=== PATIENT | female | born 1995 | race Caucasian/White ===

== ENCOUNTER → 2017-05-15 | Outpatient (CLI) | payer BC | END | disposition home or self-care (01) | LOC: C.PAPS 09:53 | PROVIDERS: ATTEND Obstetrics & Gynecology | DX: Z01.419 Encounter for gynecological examination (general) (routine) without abnormal findings (principal) ==

== ENCOUNTER 2020-12-15 11:19 | Inpatient (IN) ==
[2020-12-15] MEDS ORDERED: OXYTOCIN 30 UNITS/500 ML BAG IV PRN (20:51)
[2020-12-15 21:20] LABS: Hematocrit (blood only) 38.6 % (37-47); Mean Corpuscular Hemoglobin 28.5 pg (25-34); Mean Corpuscular Hgb Conc 33.7 g/dL (32-36); Mean Corpuscular Volume 84.6 fL (80-100); Mean Platelet Volume 9.4 fL (7.4-10.4); Platelet Count 260 K/uL (130-400); RDW Coefficient of Variation 14.9 % (11.5-14.5); Red Blood Count 4.56 M/uL (4.2-5.4); White Blood Count 12.07 K/uL (4.8-10.8)
[2020-12-15] MEDS ORDERED: GLUCOSE 10 TABS/TUBE PO PRN (21:30)
[2020-12-15] MEDS ORDERED: INSULIN HUMAN NPH SC ONE (21:30)
[2020-12-15] MEDS ORDERED: DEXTROSE 50% 50 ML SYRINGE IV PRN (21:30)
[2020-12-15] MEDS ORDERED: GLUCOSE 40% GEL 15 GM TUBE PO PRN (21:30)
[2020-12-15] MEDS ORDERED: CARBOHYDRATES FOR HYPOGLYCEMIA PO PRN (21:30)
[2020-12-15] MEDS ORDERED: GLUCAGON FOR INJ 1 MG VIAL IM PRN (21:30)
[2020-12-15] MEDS ORDERED: miSOPROStoL 50 MCG TAB PO ONE (21:30)
[2020-12-15] MEDS: LABETALOL HCL 200 MG TAB PO SCH (21:37)
[2020-12-15] MEDS: LACTATED RINGER'S 1,000 ML IV PRN (22:12)
[2020-12-16] MEDS: ceFAZolin 1000MG 1,000 MG/7.5 ML SYR IV PRN ×3 (03:41→22:45)
[2020-12-16] MEDS ORDERED: DINOPROSTONE 10 MG INSERT PV ONE (03:57)
[2020-12-16] MEDS: LABETALOL HCL 200 MG TAB PO SCH ×3 (09:05→20:53)
[2020-12-16] MEDS ORDERED: OXYTOCIN 30 UNITS/500 ML BAG IV PRN ×2 (15:22→16:22)
[2020-12-16] MEDS: LACTATED RINGER'S 1,000 ML IV PRN ×2 (16:02→19:39)
[2020-12-16] MEDS ORDERED: BUTORPHANOL TARTRATE 1 MG/ML VIAL IV PRN (19:51)
[2020-12-16] MEDS ORDERED: BUPIVACAINE 0.25% 30 ML VIAL ONE (20:59)
[2020-12-16] MEDS ORDERED: SODIUM CHLORIDE 0.9% INJ 10 ML VIAL ONE (20:59)
[2020-12-16] MEDS ORDERED: fentaNYL citrate 100 MCG/2 ML VIAL ONE (20:59)
[2020-12-16] MEDS ORDERED: fentaNYL 2MCG/ML ROPIVACAINE 1.25MG/ML 100 ML BAG EPI ONE (20:59)
[2020-12-16] MEDS ORDERED: ePHEDrine sulfate 50 MG/ML AMP ONE (20:59)
--- NOTE | 2020-12-16 21:14 | Anesthesiology Consultation ---
Date of Service December 16, 2020 Assessment & Plan (1) Encounter for pre-operative examination: Chart Review Chart Review: Acceptable Risk for Surgery and Patient NOT seen in Pre Admission Testing Consults Requested none History Height/Weight Height: 5 ft 2 in Weight: 106.141 kg Allergies Allergy/AdvReac Type Severity Reaction Status Date / Time amoxicillin [From Augmentin] Allergy Rash Verified 12/15/20 19:55 clavulanic acid Allergy Rash Verified 12/15/20 19:55 [From Augmentin] Penicillins Allergy Rash Verified 12/15/20 19:55 Medications Home Medications Medication Instructions Recorded Confirmed Last Taken acetone (urine) test #50 08/07/20 08/07/20 Unknown blood sugar diagnostic #150 08/07/20 08/07/20 Unknown blood-glucose meter #1 08/07/20 08/07/20 Unknown lancets 33 gauge #150 08/07/20 08/07/20 Unknown insulin syringe-needle U-100 0.5 #40 08/18/20 08/18/20 Unknown mL 31 gauge x 5/16" insulin NPH isoph U-100 human 50 unit SUBCUT QPM 12/15/20 12/15/20 12/14/20 [Novolin N NPH U-100 Insulin] labetalol 200 mg PO TID 12/15/20 12/15/20 12/15/20 vit-ferrous sulfat-FA 1 tab PO DAILY 12/15/20 12/15/20 Unknown [] Active Medications Generic Name Dose Route Start Last Admin Trade Name Freq PRN Reason Stop Dose Admin Butorphanol Tartrate 1 mg 12/16/20 19:51 12/16/20 20:05 Butorphanol Tartrate 1 Mg/Ml Vial IV 01/15/21 19:50 1 mg PRN PRN Administration Pain Cefazolin Sodium 1,000 mg in 7.5 mls @ 2.5 mls/min 12/15/20 20:51 12/16/20 13:51 Ancef 1000mg IV 12/25/20 20:50 2.5 mls/min Q8H PRN Administration Until Delivery Lactated Ringer's 1,000 mls @ 125 mls/hr 12/15/20 20:51 12/16/20 19:39 Lr IV 12/17/20 20:50 125 mls/hr .Q8H PRN Administration L&D Protocol Protocol Oxytocin 30 units in 500 mls @ 12 mls/hr 12/16/20 15:22 12/16/20 20:15 Pitocin IV 12/18/20 15:21 0.72 units/hr .Q24H PRN 12 mls/hr Labor Induction/Augmentation Titration Protocol 0.72 UNITS/HR Labetalol HCl 200 mg 12/15/20 21:00 12/16/20 20:53 Labetalol Hcl 200 Mg Tab PO 01/14/21 20:59 200 mg TID TAVARES Administration Past Medical History Medical History (Updated 12/16/20 @ 21:12 by Kerry Mesa MD) History of cervicitis History of palpitations Seborrheic dermatitis Past Family History Family History Family/Other Diabetes Depression Hypertension Grandfather (Maternal) Heart disease Grandmother (Maternal) Heart disease Stroke x2 strokes Father Mitral valve anterior leaflet prolapse Uncle Thrombocytopenia, heparin-induced (HIT) Denies family history of Ovarian cancer Breast cancer Colorectal cancer Past Surgical History Surgical History S/P appendectomy S/P wisdom tooth extraction Social History Smoking Status: Never smoker Hx Alcohol Use: No Hx Substance Use: No Physical Exam Vital Signs Last Vital Signs Temp 36.6 C 12/16/20 13:01 Pulse 81 12/16/20 21:06 Resp 20 12/16/20 17:37 BP 133/75 12/16/20 21:06 Testing Laboratory Results 12/15/20 21:09 12/16/20 12/16/20 12/16/20 20:02 15:58 10:51 POC Glucose 88 78 103 H
[2020-12-16] MEDS ORDERED: ePHEDrine sulfate 50 MG/ML AMP IV PRN (22:02)
[2020-12-16] MEDS ORDERED: fentaNYL 2MCG/ML ROPIVACAINE 1.25MG/ML 100 ML BAG EPI PRN (22:02)
[2020-12-16] MEDS ORDERED: NALOXONE HCL 1 MG in SODIUM CHLORIDE 0.9% 1000ML 1,000 ML IV PRN (22:02)
[2020-12-16] MEDS ORDERED: NALOXONE HCL 0.4 MG/1 ML VIAL/CARP IV PRN (22:02)
[2020-12-16] MEDS ORDERED: ONDANSETRON INJ 2 MG/ML 2 ML VIAL IV PRN (22:02)
[2020-12-16] MEDS ORDERED: diphenhydrAMINE 50 MG/ML VIAL IV PRN (22:02)
[2020-12-17] MEDS: LACTATED RINGER'S 1,000 ML IV PRN (01:05)
[2020-12-17] MEDS ORDERED: ACETAMINOPHEN 325 MG TAB PO PRN (03:20)
[2020-12-17] MEDS ORDERED: bisacodyL 10 MG SUPP PR PRN (03:20)
[2020-12-17] MEDS ORDERED: HYDROCORTISONE ACETATE 25 MG SUPP PR PRN (03:20)
[2020-12-17] MEDS ORDERED: oxyCODONE/ACETAMINOPHEN 5mg/325mg TAB PO PRN (03:20)
[2020-12-17] MEDS ORDERED: SUPERCREAM 0.870% 15 GM JAR EXT PRN (03:20)
[2020-12-17] MEDS ORDERED: ACETAMINOPHEN W/CODEINE #3 1 TAB PO PRN (03:20)
[2020-12-17] MEDS ORDERED: OXYTOCIN 30 UNITS/500 ML BAG IV PRN (03:20)
[2020-12-17] MEDS ORDERED: BENZOCAINE 20% AER SPR 82.5 GM CAN EXT PRN (03:20)
[2020-12-17] MEDS ORDERED: DIPHTHERIA/TETANUS/PERTUSSIS 0.5 ML SYR/VIAL IM ONE (03:20)
[2020-12-17] MEDS: IBUPROFEN 600 MG TAB PO PRN ×4 (05:29→20:15)
--- NOTE | 2020-12-17 08:21 | Delivery Summary ---
DATE OF OPERATION: 12/17/2020 She is a 1, para 1. Blood type is O positive, group B strep positive, induction at 38 weeks 5 days. complicated by hypertension for which she has been taking labetalol 200 mg 3 times a day and gestational diabetes for which she was on insulin brought in for induction at 35 weeks and 3 days, was given p.o. Cytotec and a Cervidil tape. After the tape was removed, she was started on IV Pitocin and the membranes were then ruptured. After rupture of membranes, contractions became a lot harder, she was given a dose of Stadol. Then she received epidural. When she received epidural, her labor progressed steadily, went to full dilatation, and pushed out a live female infant via direct occiput anterior position over an intact perineum. There was some bradycardia prior to delivery. This was managed by first cutting back on the Pitocin and shutting it off and starting mask oxygen. At the time of delivery, there was a tight nuchal cord x1, which had to be clamped and cut. Infant was then delivered without difficulty, was attended to by the nurses. Cord blood was taken. With IV Pitocin running, the placenta was removed intact. Inspection of the perineum revealed a superficial laceration of the perineum and the vagina on the right side. There was actually a small arterial pumper. The vaginal defect was approximated with a running 2-0 Vicryl out and to beyond the hymenal ring and this basically repaired the laceration. Following this, hemostasis was good. Vaginal exam including rectovaginal examination revealed no hematoma formation or sponges in the vagina. The patient tolerated the procedure well. ESTIMATED BLOOD LOSS: 300 mL I attest to the content of the Intraoperative Record and any orders documented therein. Any exception s are noted below.
[2020-12-17] MEDS ORDERED: LABETALOL HCL 200 MG TAB PO SCH (09:00)
--- NOTE | 2020-12-17 09:13 | Anesthesia Procedure Note ---
Date of Service December 17, 2020 Anesthesia Post Epidural Note Vital Signs Vital Signs: Temp Pulse Resp BP Pulse Ox 36.6 C 103 H 18 119/72 96 12/17/20 06:10 12/17/20 06:10 12/17/20 06:10 12/17/20 06:10 12/17/20 06:10 Pain Intensity Bilateral Lower Abdomen: Pain Intensity: 7 Notes Mental Status: alert / awake / arousable Nausea / Vomiting: adequately controlled Pain: adequately controlled Airway Patency, RR, SpO2: stable & adequate BP & HR: stable & adequate Hydration State: stable & adequate Neuraxial Anesthesia: was administered and sensory block is resolving Anesthetic Complications: no major complications apparent and Pt Satisfied with anesthetic care Epidural: Removed without complications and With tip intact
[2020-12-17] MEDS: LABETALOL HCL 200 MG TAB PO SCH ×3 (09:30→21:12)
[2020-12-17] MEDS: DOCUSATE SODIUM 100 MG CAP PO SCH ×2 (09:30→20:15)
[2020-12-17] MEDS: PRENATAL VITAMIN 1 TAB PO SCH (09:30)
[2020-12-18 06:12] LABS: Hematocrit (blood only) 35.5 % (37-47); Hemoglobin 11.8 g/dL (12.0-16.0); Mean Corpuscular Hemoglobin 28.4 pg (25-34); Mean Corpuscular Hgb Conc 33.2 g/dL (32-36); Mean Corpuscular Volume 85.5 fL (80-100); Mean Platelet Volume 9.3 fL (7.4-10.4); Platelet Count 187 K/uL (130-400); RDW Coefficient of Variation 14.9 % (11.5-14.5); RDW Standard Deviation 46.5 fL (36.4-46.3); Red Blood Count 4.15 M/uL (4.2-5.4); White Blood Count 12.75 K/uL (4.8-10.8)
[2020-12-18] MEDS: IBUPROFEN 600 MG TAB PO PRN ×2 (09:04→21:54)
--- NOTE | 2020-12-18 09:19 | Obstetrical Progress Note ---
Date of Service December 18, 2020 Assessment & Plan Admission and Anticipated Discharge Date Admission Date: December 15, 2020 Physical Exam Physical Exam: abdomen soft and non tender no calf tenderness ambulating well vaginal bleeding scant hgb 11.8 Results & Data ([facility]) Vital Signs (Past 12 Hours) Vital Signs Temp Pulse Resp BP 12/18/20 04:30 36.4 C L 78 18 120/81 12/17/20 23:40 36.4 C L 87 18 111/70
[2020-12-18] MEDS: DOCUSATE SODIUM 100 MG CAP PO SCH ×2 (09:36→20:05)
[2020-12-18] MEDS: PRENATAL VITAMIN 1 TAB PO SCH (09:36)
[2020-12-18] MEDS: LABETALOL HCL 200 MG TAB PO SCH ×3 (09:38→20:06)
[2020-12-18] MEDS ORDERED: bisacodyL 5 MG TABEC PO SCH (20:00)
[2020-12-19] MEDS: IBUPROFEN 600 MG TAB PO PRN ×3 (02:21→16:05)
[2020-12-19 06:52] LABS: Hematocrit (blood only) 35.3 % (37-47); Hemoglobin 11.8 g/dL (12.0-16.0)
--- NOTE | 2020-12-19 07:29 | Obstetrical Progress Note ---
Date of Service December 19, 2020 Assessment & Plan Admission and Anticipated Discharge Date Admission Date: December 15, 2020 Physical Exam Physical Exam: abdomen soft and non tender ambulating well no calf tenderness vaginal bleeding scant hgb 11.8 Results & Data ([facility]) Vital Signs (Past 12 Hours) Vital Signs Temp Pulse Resp BP 12/18/20 23:51 36.7 C 74 18 137/74
[2020-12-19] MEDS: DOCUSATE SODIUM 100 MG CAP PO SCH (09:00)
[2020-12-19] MEDS: PRENATAL VITAMIN 1 TAB PO SCH (09:00)
[2020-12-19] MEDS: LABETALOL HCL 200 MG TAB PO SCH ×2 (09:01→15:06)
[2020-12-19 09:50] VITALS: O2SAT 97
[2020-12-19 16:12] VITALS: BP 120/80; PULSE 80; TEMP 98.1
== END 2020-12-19 18:29 | disposition home or self-care (01) | DRG 807 ==
LOC: 4S1 19:35 → 4S2 12-17 06:13

== ENCOUNTER 2025-09-08 07:37 | Inpatient (IN) ==
[2025-09-08] MEDS ORDERED: OXYTOCIN 30 UNITS/NSS 30 UNITS/500 ML BAG IV PRN (08:55)
[2025-09-08] MEDS ORDERED: CALCIUM CARBONATE 500 MG CHEWABLE TAB PO PRN (08:55)
[2025-09-08 09:34] LABS: Hematocrit (blood only) 36.8 % (37.0-47.0); Hemoglobin 12.6 g/dl (12.0-16.0); Mean Corpuscular Hemoglobin 28.8 pg (25.0-34.0); Mean Corpuscular Volume 84.0 fL (80.0-100.0); Platelet Count 164 K/uL (130-400); RDW Standard Deviation 43.5 fL (36.4-46.3); Red Blood Count 4.38 M/uL (4.20-5.40); White Blood Count 9.18 K/ul (4.8-10.8)
[2025-09-08] MEDS: LACTATED RINGER'S 1,000 ML IV PRN (09:44)
--- NOTE | 2025-09-08 10:04 | History & Physical Report ---
Date of Service September 08, 2025 Assessment & Plan (1) IUGR (intrauterine growth restriction) affecting care of mother: (2) Chronic hypertension affecting : (3) Insulin controlled gestational diabetes mellitus (GDM) during : (4) Obesity affecting , antepartum: Plan Admit to L&D. EFM/toco. Labs. Ancef for GBS+ (has PCN allergy - rash, no h/o anaphylaxis). Pitocin, ok for epidural when she desires. Will check initial glucose and hourly in labor. Admission and Anticipated Discharge Date Admission Date: September 08, 2025 History of Present Illness Chief Complaint: IOL Primary Care Provider: Cecilio Dill MD 30yo @ 38 01/24, here for IOL for cHTN. and Delivery Plans IUGR - EFW 9% at 24wks w/ MFM and again EFW 9% at 36wks montly growth us *Twice weekly NST/DVP@Dx *Weekly doppler@Dx *Growth US Q4wk @Dx *Deliver [id number] (unless abnml flow) *Deliver 37wks (less than 3rd%) GDM on insulin *Wkly NSTs @32wks and Twice wkly @36wks *Growth US Q 4wks @ 24wks (24 wk growth at [facility] to complete anatomy also) *Deliver by [facility] Hx PIH with prior - ?chtn vs ghtn -baseline labs, baby asa -baseline 24hr urine wnl - sln initial protein 128 Obesity (BMI 40 and higher @ beginning of ) BMI 47 at start *Growth US @ 32wks *Weekly NSTs @ 34wks *BMI 40 or greater offer detailed/level II anatomy at [facility] - desires [facility] 05/06/25 *BMI 40 or above offer delivery by EDC. Hepatitis B Non Immune *Recommend Hepatitis B Vaccine CHTN----No Meds *Baby ASA daily start 12-28 wks, continue until delivery - started *wkly NST's @32wks and twice wkly @36 wks *Serial Growth US @ 24 (doppler only if abnml) *Baseline 24hr urine (additioinal PRN) *weekly SUMMER's @ 32wk(If on Meds) *Deliver [id number] (If on Meds) *Deliver [id number] (Not on Meds)------IOL 09/08 GBS + -Treat in labor Allergies Allergy/AdvReac Type Severity Reaction Status Date / Time amoxicillin [From Augmentin] Allergy Rash Verified 08/26/25 14:44 clavulanic acid Allergy Rash Verified 08/26/25 14:44 [From Augmentin] Penicillins Allergy Rash Verified 08/26/25 14:44 Home Medications Medication Instructions Recorded Confirmed Type 21-iron fu-folic acid 1 tab PO DAILY 02/21/25 09/08/25 History [ Complete] acetone (urine) test (Ketone Urine #50 ea 03/06/25 08/26/25 Rx Test strips) blood sugar diagnostic (OneTouch #150 ea 03/06/25 08/26/25 Rx Verio test strips) blood-glucose meter (OneTouch #1 ea 03/06/25 08/26/25 Rx Verio Reflect Meter) lancets 33 gauge (OneTouch Delica #150 ea 03/06/25 08/26/25 Rx Plus Lancet) pen needle, diabetic 32 gauge x #100 ea 03/21/25 08/26/25 Rx 5/32" aspirin 81 mg chewable tablet 81 mg PO DAILY 09/08/25 09/08/25 History insulin NPH isoph U-100 human 100 50 unit subcut .at bed time 09/08/25 09/08/25 History unit/mL (3 mL) subcutaneous pen (Novolin N FlexPen) Patient History Medical History Varicella Human papillomavirus Obesity Acute vulvitis Anxiety Low grade squamous intraepithelial lesion (LGSIL) on cervical Pap smear Nephrolithiasis Pigmented nevus Polycystic ovarian syndrome Seborrheic dermatitis History of palpitations History of cervicitis Surgical History S/P wisdom tooth extraction S/P appendectomy Family History Family/Other Diabetes Depression Hypertension Grandfather (Maternal) Heart disease Grandmother (Maternal) Heart disease Stroke Father Mitral valve anterior leaflet prolapse Uncle Thrombocytopenia, heparin-induced (HIT) Denies family history of Ovarian cancer Breast cancer Colorectal cancer Social History (Updated 02/21/25 @ 13:12 by Vielka Mccall) Smoking Status: Never smoker Do You Dip or Chew Tobacco: No; Hx Alcohol Use: No Hx Substance Use: No Preferred Language: Arabic Communication Ability: Effective [employer] And Wellness Instructor Required: No Beliefs That Will Affect Care: None marital status: marital status details: Jaime Lowery (36) [phone] Current Living Situation: Spouse and Family Current Living Situation Comment: lives with spouse, child, 2 step children, dogs, cat-spouse changing litter current occupational status: employed current occupation: [employer] Other Information That Helps Us Care for You: No Feels Safe at Home: Yes Safety Concerns: Feels Safe At This Time Physical Activity Frequency: Other Physical Activity Frequency Comment: regularly Assistive Devices: None Review of Systems All systems reviewed & are unremarkable except as noted in HPI & below Physical Exam Physical Exam: /-3 T Cat 1 [place] rare Constitutional: WD/WN, vitals as above Respiratory: normal respiratory effort, lungs clear to auscultation no respiratory distress Cardiovascular: Rate/Rhythm: regular rate and regular rhythm Gastrointestinal (Abdomen): Inspection/Auscultation: abdomen normal to inspection Percussion/Palpation: abdomen soft; abdomen nontender Gravid. No s/s chorio or abruption. Skin: no rashes, warm and dry Psychiatric: A+Ox3, euthymic affect Results & Data Vital Signs (Past 12 Hours) Vital Signs Temp Pulse Resp BP 09/08/25 09:48 100 H 09/08/25 09:48 117/70 09/08/25 08:16 36.7 C 20 09/08/25 07:55 122 H 115/65 Coding Level of Care Code None Diagnoses IUGR (intrauterine growth restriction) affecting care of mother O36.5990 Chronic hypertension affecting O10.919 Insulin controlled gestational diabetes mellitus (GDM) during O24.414 Obesity affecting , antepartum O99.210
[2025-09-08] MEDS: OXYTOCIN 30 UNITS/NSS 30 UNITS/500 ML BAG IV PRN (10:16)
--- NOTE | 2025-09-08 19:59 | Labor Progress Brief Note ---
Date of Service September 08, 2025 Subjective Starting to feel ctx. Not uncomfortable yet. FHT Cat 1 [place] Q 2 SVE /-2 Discussed plan- will get epidural, then AROM to continue IOL. She is agreeable. Assessment & Plan Admission and Anticipated Discharge Date Admission Date: September 08, 2025 Results & Data Vital Signs (Past 12 Hours) Vital Signs Temp Pulse Resp BP 09/08/25 19:17 36.7 C 09/08/25 19:17 85 09/08/25 19:17 119/64 09/08/25 18:23 18 09/08/25 18:23 18 09/08/25 18:23 98 H 09/08/25 18:23 126/69 09/08/25 17:21 90 09/08/25 17:21 115/60 09/08/25 16:38 18 09/08/25 16:38 18 09/08/25 16:38 81 09/08/25 16:38 119/69 09/08/25 14:47 16 09/08/25 14:47 36.7 C 16 09/08/25 14:47 88 09/08/25 14:47 103/58 L 09/08/25 14:30 18 09/08/25 14:30 18 09/08/25 13:30 83 09/08/25 13:30 119/68 09/08/25 12:35 93 H 09/08/25 12:35 104/56 L 09/08/25 12:00 20 09/08/25 12:00 20 09/08/25 11:00 18 09/08/25 11:00 36.6 C 18 09/08/25 10:59 96 H 09/08/25 10:59 118/67 09/08/25 10:30 20 09/08/25 10:30 20 09/08/25 10:00 20 09/08/25 10:00 20 09/08/25 09:48 100 H 09/08/25 09:48 117/70 09/08/25 09:30 18 09/08/25 09:30 18 09/08/25 09:00 18 09/08/25 09:00 18 09/08/25 08:16 36.7 C 20 09/08/25 07:55 122 H 115/65 Coding Level of Care Code None
[2025-09-08] MEDS ORDERED: NALBUPHINE HCL INJ 10 MG/ML AMP IV PRN (20:08)
[2025-09-08] MEDS ORDERED: SODIUM CHLORIDE 0.9% PF INJ 10 ML VIAL EPI PRN (20:08)
[2025-09-08] MEDS ORDERED: ROPIVACAINE 0.5% PF 5 MG/ML 20 ML VIAL EPI PRN (20:08)
[2025-09-08] MEDS ORDERED: LIDOCAINE 2% MPF LOCAL 5 ML VIAL EPI PRN (20:08)
[2025-09-08] MEDS ORDERED: NALOXONE HCL 0.4 MG/1 ML VIAL/CARP IV PRN (20:08)
[2025-09-08] MEDS ORDERED: diphenhydrAMINE 50 MG/ML VIAL IV PRN (20:08)
[2025-09-08] MEDS ORDERED: fentANYL 2 MCG/ML BUPIVacaine 0.125%-NSS 100ML BAG EPI PRN (20:08)
[2025-09-08] MEDS ORDERED: BUPIVACAINE 0.25% PF 30 ML VIAL EPI PRN (20:08)
[2025-09-08] MEDS ORDERED: NALOXONE HCL 1 MG in SODIUM CHLORIDE 0.9% 1,000 ML IV PRN (20:08)
--- NOTE | 2025-09-08 20:10 | Anesthesiology Consultation ---
Date of Service September 08, 2025 Assessment & Plan (1) Encounter for pre-operative examination: Chart Review Chart Review: Patient NOT seen in Pre Admission Testing and Acceptable Risk for Labor Epidural Consults Requested none History Height/Weight Height: 5 ft 2 in Weight: 107 kg Allergies Allergy/AdvReac Type Severity Reaction Status Date / Time amoxicillin [From Augmentin] Allergy Rash Verified 08/26/25 14:44 clavulanic acid Allergy Rash Verified 08/26/25 14:44 [From Augmentin] Penicillins Allergy Rash Verified 08/26/25 14:44 Medications Home Medications Medication Instructions Recorded Confirmed Last Taken 21-iron fu-folic acid 1 tab PO DAILY 02/21/25 09/08/25 09/07/25 [ Complete] acetone (urine) test (Ketone Urine #50 ea 03/06/25 08/26/25 Unknown Test strips) blood sugar diagnostic (OneTouch #150 ea 03/06/25 08/26/25 Unknown Verio test strips) blood-glucose meter (OneTouch #1 ea 03/06/25 08/26/25 Unknown Verio Reflect Meter) lancets 33 gauge (OneTouch Delica #150 ea 03/06/25 08/26/25 Unknown Plus Lancet) pen needle, diabetic 32 gauge x #100 ea 03/21/25 08/26/25 Unknown 32" aspirin 81 mg chewable tablet 81 mg PO DAILY 09/08/25 09/08/25 09/07/25 insulin NPH isoph U-100 human 100 50 unit subcut .at bed time 09/08/25 09/08/25 09/07/25 unit/mL (3 mL) subcutaneous pen (Novolin N FlexPen) Active Medications Generic Name Dose Route Start Last Admin Trade Name Freq PRN Reason Stop Dose Admin Lactated Ringer's 1,000 mls @ 125 mls/hr 09/08/25 08:55 09/08/25 17:42 Lr IV 09/10/25 08:54 125 mls/hr .Q8H PRN Administration L&D Protocol Protocol Oxytocin 30 units in 500 mls @ 17 mls/hr 09/08/25 09:59 09/08/25 19:15 Pitocin 30 Units/Nss IV 09/10/25 09:58 1.02 units/hr .Q24H PRN 17 mls/hr Labor Induction/Augmentation Titration Protocol 1.02 UNITS/HR Cefazolin Sodium 1,000 mg in 7.5 mls @ 2.5 mls/min 09/08/25 16:59 09/08/25 19:18 Ancef 1000mg IV 09/18/25 16:58 2.5 mls/min Q8H PRN Administration GBS(+) Until Delivery Past Medical History Medical History Varicella Human papillomavirus Obesity Acute vulvitis Anxiety Low grade squamous intraepithelial lesion (LGSIL) on cervical Pap smear Nephrolithiasis Pigmented nevus Polycystic ovarian syndrome Seborrheic dermatitis History of palpitations History of cervicitis Past Family History Family History Family/Other Diabetes Depression Hypertension Grandfather (Maternal) Heart disease Grandmother (Maternal) Heart disease Stroke x2 strokes Father Mitral valve anterior leaflet prolapse Uncle Thrombocytopenia, heparin-induced (HIT) Denies family history of Ovarian cancer Breast cancer Colorectal cancer Past Surgical History Surgical History S/P wisdom tooth extraction S/P appendectomy Social History Smoking Status: Never smoker Do You Dip or Chew Tobacco: No Hx Alcohol Use: No Hx Substance Use: No substance use type: does not use Physical Exam Vital Signs Last Vital Signs Temp 98.1 F 09/08/25 19:17 Pulse 85 09/08/25 19:17 Resp 18 09/08/25 18:23 BP 119/64 09/08/25 19:17 Testing Laboratory Results 09/08/25 09:15 Blood Type O Positive 09/08/25 09:15 Antibody Screen NEGATIVE 09/08/25 09:15 09/08/25 09:53 POC Glucose 92
[2025-09-08] MEDS: fentANYL 2 MCG/ML BUPIVacaine 0.125%-NSS 100ML BAG ONE (20:34)
[2025-09-08] MEDS: SODIUM CHLORIDE 0.9% PF INJ 10 ML VIAL ONE (20:35)
[2025-09-08] MEDS: LIDOCAINE 2%/EPINEPHRINE 1:200,000 20 ML PF ONE (20:36)
[2025-09-08] MEDS: BUPIVACAINE 0.25% PF 30 ML VIAL ONE (20:36)
[2025-09-08] MEDS: BUPIVACAINE 0.25% PF 30 ML VIAL EPI STA (20:40)
[2025-09-08] MEDS: LIDOCAINE 2%/EPINEPHRINE 1:200,000 20 ML PF EPI STA (20:40)
[2025-09-08] MEDS: SODIUM CHLORIDE 0.9% PF INJ 10 ML VIAL EPI STA (20:41)
--- NOTE | 2025-09-09 00:52 | Labor Progress Brief Note ---
Date of Service September 09, 2025 Subjective Reexam shows cervix is unchanged over the past 3 hours. Patient felt some increased pain with contractions, but this has eased with epidural. FHT Cat 2 - some early decelerations, occasional variable decelerations. +accels. [place] Q 2 IUPC and FSE placed. Assessment & Plan Admission and Anticipated Discharge Date Admission Date: September 08, 2025 Results & Data Vital Signs (Past 12 Hours) Vital Signs Temp Pulse Resp BP Pulse Ox 09/09/25 00:45 107 H 99 09/09/25 00:40 112 H 100 09/09/25 00:36 106 H 122/58 L 09/09/25 00:35 104 H 98 09/09/25 00:30 127 H 99 09/09/25 00:25 116 H 98 09/09/25 00:21 115 H 130/71 09/09/25 00:20 113 H 98 09/09/25 00:15 110 H 99 09/09/25 00:10 99 H 97 09/09/25 00:05 98 09/09/25 00:05 102 H 09/09/25 00:05 102 H 95/54 L 09/09/25 00:00 99 H 98 09/08/25 23:55 98 09/08/25 23:55 103 H 09/08/25 23:50 100 09/08/25 23:50 101 H 09/08/25 23:50 99/58 L 09/08/25 23:45 98 09/08/25 23:45 109 H 09/08/25 23:40 98 09/08/25 23:40 94 H 09/08/25 23:35 98 09/08/25 23:35 95 H 09/08/25 23:35 93/54 L 09/08/25 23:30 98 09/08/25 23:30 105 H 09/08/25 23:25 36.8 C 09/08/25 23:25 98 09/08/25 23:25 115 H 09/08/25 23:21 100 H 09/08/25 23:21 102/53 L 09/08/25 23:20 99 09/08/25 23:20 100 H 09/08/25 23:15 98 09/08/25 23:15 94 H 09/08/25 23:10 98 09/08/25 23:10 97 H 09/08/25 23:05 98 09/08/25 23:05 99 H 09/08/25 23:05 99/57 L 09/08/25 23:00 98 09/08/25 23:00 96 H 09/08/25 22:55 97 09/08/25 22:55 99 H 09/08/25 22:50 99 09/08/25 22:50 105 H 09/08/25 22:50 106/58 L 09/08/25 22:45 97 09/08/25 22:45 96 H 09/08/25 22:40 98 09/08/25 22:40 98 H 09/08/25 22:36 94 H 09/08/25 22:36 104/55 L 09/08/25 22:35 98 09/08/25 22:35 94 H 09/08/25 22:30 98 09/08/25 22:30 93 H 09/08/25 22:25 99 09/08/25 22:25 98 H 09/08/25 22:20 99 09/08/25 22:20 98 H 09/08/25 22:20 101 H 09/08/25 22:20 99/54 L 09/08/25 22:15 99 09/08/25 22:15 100 H 09/08/25 22:10 99 09/08/25 22:10 99 H 09/08/25 22:05 100 09/08/25 22:05 96 H 09/08/25 22:05 99/52 L 09/08/25 22:00 100 09/08/25 22:00 102 H 09/08/25 21:55 100 09/08/25 21:55 92 H 09/08/25 21:50 100 09/08/25 21:50 101 H 09/08/25 21:50 110 H 09/08/25 21:50 104/56 L 09/08/25 21:48 98 H 09/08/25 21:48 95/58 L 09/08/25 21:46 103 H 09/08/25 21:46 94/53 L 09/08/25 21:45 100 09/08/25 21:45 103 H 09/08/25 21:44 102 H 09/08/25 21:44 92/55 L 09/08/25 21:42 109 H 09/08/25 21:42 98/58 L 09/08/25 21:40 100 09/08/25 21:40 103 H 09/08/25 21:40 106 H 09/08/25 21:40 99/53 L 09/08/25 21:38 97 H 09/08/25 21:38 96/50 L 09/08/25 21:37 36.7 C 09/08/25 21:36 103 H 09/08/25 21:36 100/56 L 09/08/25 21:35 99 09/08/25 21:35 109 H 09/08/25 21:34 96 H 09/08/25 21:34 113/57 L 09/08/25 21:32 97 H 09/08/25 21:32 106/56 L 09/08/25 21:30 99 09/08/25 21:30 99 H 09/08/25 21:30 91 H 09/08/25 21:30 109/59 L 09/08/25 21:28 96 H 09/08/25 21:28 107/61 09/08/25 21:26 88 09/08/25 21:26 115/58 L 09/08/25 21:25 99 09/08/25 21:25 93 H 09/08/25 21:24 101 H 09/08/25 21:24 117/55 L 09/08/25 21:22 100 H 09/08/25 21:22 114/59 L 09/08/25 21:20 99 09/08/25 21:20 100 H 09/08/25 21:20 115/58 L 09/08/25 21:18 93 H 09/08/25 21:18 116/59 L 09/08/25 21:16 92 H 09/08/25 21:16 113/60 09/08/25 21:15 99 09/08/25 21:15 92 H 09/08/25 21:14 104 H 09/08/25 21:14 102/59 L 09/08/25 21:12 93 H 09/08/25 21:12 114/60 09/08/25 21:10 99 09/08/25 21:10 99 H 09/08/25 21:10 92 H 09/08/25 21:10 115/59 L 09/08/25 21:08 91 H 09/08/25 21:08 113/60 09/08/25 21:06 96 H 09/08/25 21:06 120/58 L 09/08/25 21:05 100 09/08/25 21:05 94 H 09/08/25 21:04 96 H 09/08/25 21:04 119/59 L 09/08/25 21:02 90 09/08/25 21:02 113/55 L 09/08/25 21:00 100 09/08/25 21:00 107 H 09/08/25 21:00 100 H 09/08/25 21:00 113/61 09/08/25 20:58 127 H 09/08/25 20:58 111/57 L 09/08/25 20:56 109 H 09/08/25 20:56 106/55 L 09/08/25 20:55 99 09/08/25 20:55 111 H 09/08/25 20:54 107 H 09/08/25 20:54 104/55 L 09/08/25 20:52 102 H 09/08/25 20:52 110/57 L 09/08/25 20:50 99 09/08/25 20:50 114 H 09/08/25 20:50 97 H 09/08/25 20:50 108/54 L 09/08/25 20:48 102 H 09/08/25 20:48 108/56 L 09/08/25 20:46 105 H 09/08/25 20:46 105/54 L 09/08/25 20:45 99 09/08/25 20:45 105 H 09/08/25 20:44 103 H 09/08/25 20:44 101/54 L 09/08/25 20:42 101 H 09/08/25 20:42 106/56 L 09/08/25 20:40 97 09/08/25 20:40 106 H 09/08/25 20:40 96 H 09/08/25 20:40 105/55 L 09/08/25 20:38 97 H 09/08/25 20:38 103/57 L 09/08/25 20:37 87 20 20:37 97/55 L 09/08/25 20:35 100 09/08/25 20:35 88 10/20/25 20:35 92/52 L 09/08/25 20:34 106 H 09/08/25 20:34 109/55 L 09/08/25 20:31 122 H 09/08/25 20:31 127/65 09/08/25 20:30 100 09/08/25 20:30 114 H 09/08/25 20:28 133 H 09/08/25 20:28 138/79 09/08/25 20:25 100 09/08/25 20:25 111 H 09/08/25 20:20 100 09/08/25 20:20 127 H 09/08/25 20:15 100 09/08/25 20:15 115 H 09/08/25 19:17 36.7 C 09/08/25 19:17 85 09/08/25 19:17 119/64 09/08/25 18:23 18 09/08/25 18:23 18 09/08/25 18:23 98 H 09/08/25 18:23 126/69 09/08/25 17:21 90 09/08/25 17:21 115/60 09/08/25 16:38 18 09/08/25 16:38 18 09/08/25 16:38 81 09/08/25 16:38 119/69 09/08/25 14:47 16 09/08/25 14:47 36.7 C 16 09/08/25 14:47 88 09/08/25 14:47 103/58 L 09/08/25 14:30 18 09/08/25 14:30 18 09/08/25 13:30 83 09/08/25 13:30 119/68 Coding Level of Care Code None
--- NOTE | 2025-09-09 01:51 | Labor Progress Brief Note ---
Date of Service September 09, 2025 Subjective Feeling some pressure occasionally. FHT Cat 1 [place] Q 2, adequate MVUs US cephalic. (limited bedside) SVE 80/-1 Continue pitocin, continue labor, continue repositioning. Suspect OP presentation. Assessment & Plan Admission and Anticipated Discharge Date Admission Date: September 08, 2025 Results & Data Vital Signs (Past 12 Hours) Vital Signs Temp Pulse Resp BP Pulse Ox 09/09/25 01:45 117 H 98 09/09/25 01:40 118 H 99 09/09/25 01:37 36.9 C 09/09/25 01:35 121 H 148/77 H 100 09/09/25 01:30 118 H 99 09/09/25 01:25 112 H 99 09/09/25 01:22 110 H 135/73 09/09/25 01:20 113 H 100 09/09/25 01:15 111 H 99 09/09/25 01:10 108 H 99 09/09/25 01:06 103 H 133/77 09/09/25 01:05 102 H 97 09/09/25 01:00 108 H 98 09/09/25 00:55 102 H 98 09/09/25 00:51 104 H 130/73 09/09/25 00:50 102 H 97 09/09/25 00:45 107 H 99 09/09/25 00:40 112 H 100 09/09/25 00:36 106 H 122/58 L 09/09/25 00:35 104 H 98 09/09/25 00:30 127 H 99 09/09/25 00:25 116 H 98 09/09/25 00:21 115 H 130/71 09/09/25 00:20 113 H 98 09/09/25 00:15 110 H 99 09/09/25 00:10 99 H 97 09/09/25 00:05 98 09/09/25 00:05 102 H 09/09/25 00:05 102 H 95/54 L 09/09/25 00:00 99 H 98 09/08/25 23:55 98 09/08/25 23:55 103 H 09/08/25 23:50 100 09/08/25 23:50 101 H 09/08/25 23:50 99/58 L 09/08/25 23:45 98 09/08/25 23:45 109 H 09/08/25 23:40 98 09/08/25 23:40 94 H 09/08/25 23:35 98 09/08/25 23:35 95 H 09/08/25 23:35 93/54 L 09/08/25 23:30 98 09/08/25 23:30 105 H 09/08/25 23:25 36.8 C 09/08/25 23:25 98 09/08/25 23:25 115 H 09/08/25 23:21 100 H 09/08/25 23:21 102/53 L 09/08/25 23:20 99 09/08/25 23:20 100 H 09/08/25 23:15 98 09/08/25 23:15 94 H 09/08/25 23:10 98 09/08/25 23:10 97 H 09/08/25 23:05 98 09/08/25 23:05 99 H 09/08/25 23:05 99/57 L 09/08/25 23:00 98 09/08/25 23:00 96 H 09/08/25 22:55 97 09/08/25 22:55 99 H 09/08/25 22:50 99 09/08/25 22:50 105 H 09/08/25 22:50 106/58 L 09/08/25 22:45 97 09/08/25 22:45 96 H 09/08/25 22:40 98 09/08/25 22:40 98 H 09/08/25 22:36 94 H 09/08/25 22:36 104/55 L 09/08/25 22:35 98 09/08/25 22:35 94 H 09/08/25 22:30 98 09/08/25 22:30 93 H 09/08/25 22:25 99 09/08/25 22:25 98 H 09/08/25 22:20 99 09/08/25 22:20 98 H 09/08/25 22:20 101 H 09/08/25 22:20 99/54 L 09/08/25 22:15 99 09/08/25 22:15 100 H 09/08/25 22:10 99 09/08/25 22:10 99 H 09/08/25 22:05 100 09/08/25 22:05 96 H 09/08/25 22:05 99/52 L 09/08/25 22:00 100 09/08/25 22:00 102 H 09/08/25 21:55 100 09/08/25 21:55 92 H 09/08/25 21:50 100 09/08/25 21:50 101 H 09/08/25 21:50 110 H 09/08/25 21:50 104/56 L 09/08/25 21:48 98 H 09/08/25 21:48 95/58 L 09/08/25 21:46 103 H 09/08/25 21:46 94/53 L 09/08/25 21:45 100 09/08/25 21:45 103 H 09/08/25 21:44 102 H 09/08/25 21:44 92/55 L 09/08/25 21:42 109 H 09/08/25 21:42 98/58 L 09/08/25 21:40 100 09/08/25 21:40 103 H 09/08/25 21:40 106 H 09/08/25 21:40 99/53 L 09/08/25 21:38 97 H 09/08/25 21:38 96/50 L 09/08/25 21:37 36.7 C 09/08/25 21:36 103 H 09/08/25 21:36 100/56 L 09/08/25 21:35 99 09/08/25 21:35 109 H 09/08/25 21:34 96 H 09/08/25 21:34 113/57 L 09/08/25 21:32 97 H 09/08/25 21:32 106/56 L 09/08/25 21:30 99 09/08/25 21:30 99 H 09/08/25 21:30 91 H 09/08/25 21:30 109/59 L 09/08/25 21:28 96 H 09/08/25 21:28 107/61 09/08/25 21:26 88 09/08/25 21:26 115/58 L 09/08/25 21:25 99 09/08/25 21:25 93 H 09/08/25 21:24 101 H 09/08/25 21:24 117/55 L 09/08/25 21:22 100 H 09/08/25 21:22 114/59 L 09/08/25 21:20 99 09/08/25 21:20 100 H 09/08/25 21:20 115/58 L 09/08/25 21:18 93 H 09/08/25 21:18 116/59 L 09/08/25 21:16 92 H 09/08/25 21:16 113/60 09/08/25 21:15 99 09/08/25 21:15 92 H 09/08/25 21:14 104 H 09/08/25 21:14 102/59 L 09/08/25 21:12 93 H 09/08/25 21:12 114/60 09/08/25 21:10 99 09/08/25 21:10 99 H 09/08/25 21:10 92 H 09/08/25 21:10 115/59 L 09/08/25 21:08 91 H 09/08/25 21:08 113/60 09/08/25 21:06 96 H 09/08/25 21:06 120/58 L 09/08/25 21:05 100 09/08/25 21:05 94 H 09/08/25 21:04 96 H 09/08/25 21:04 119/59 L 09/08/25 21:02 90 09/08/25 21:02 113/55 L 09/08/25 21:00 100 09/08/25 21:00 107 H 09/08/25 21:00 100 H 09/08/25 21:00 113/61 09/08/25 20:58 127 H 09/08/25 20:58 111/57 L 09/08/25 20:56 109 H 09/08/25 20:56 106/55 L 09/08/25 20:55 99 09/08/25 20:55 111 H 09/08/25 20:54 107 H 09/08/25 20:54 104/55 L 09/08/25 20:52 102 H 09/08/25 20:52 110/57 L 09/08/25 20:50 99 09/08/25 20:50 114 H 09/08/25 20:50 97 H 09/08/25 20:50 108/54 L 09/08/25 20:48 102 H 09/08/25 20:48 108/56 L 09/08/25 20:46 105 H 09/08/25 20:46 105/54 L 09/08/25 20:45 99 09/08/25 20:45 105 H 09/08/25 20:44 103 H 09/08/25 20:44 101/54 L 09/08/25 20:42 101 H 09/08/25 20:42 106/56 L 09/08/25 20:40 97 09/08/25 20:40 106 H 09/08/25 20:40 96 H 09/08/25 20:40 105/55 L 09/08/25 20:38 97 H 09/08/25 20:38 103/57 L 09/08/25 20:37 87 09/08/25 20:37 97/55 L 09/08/25 20:35 100 09/08/25 20:35 88 09/08/25 20:35 92/52 L 09/08/25 20:34 106 H 09/08/25 20:34 109/55 L 09/08/25 20:31 122 H 09/08/25 20:31 127/65 09/08/25 20:30 100 09/08/25 20:30 114 H 09/08/25 20:28 133 H 09/08/25 20:28 138/79 09/08/25 20:25 100 09/08/25 20:25 111 H 09/08/25 20:20 100 09/08/25 20:20 127 H 09/08/25 20:15 100 09/08/25 20:15 115 H 09/08/25 19:17 36.7 C 09/08/25 19:17 85 09/08/25 19:17 119/64 09/08/25 18:23 18 09/08/25 18:23 18 09/08/25 18:23 98 H 09/08/25 18:23 126/69 09/08/25 17:21 90 09/08/25 17:21 115/60 09/08/25 16:38 18 09/08/25 16:38 18 09/08/25 16:38 81 09/08/25 16:38 119/69 09/08/25 14:47 16 09/08/25 14:47 36.7 C 16 09/08/25 14:47 88 09/08/25 14:47 103/58 L 09/08/25 14:30 18 09/08/25 14:30 18 Coding Level of Care Code None
[2025-09-09] MEDS: LIDOCAINE 1% LOCAL 20 ML VIAL INFIL PRN (03:10)
--- NOTE | 2025-09-09 03:25 | Delivery Summary ---
Vaginal Delivery Summary Date of Service September 09, 2025 Vaginal Delivery Summary and 1st Degree LAC Vaginal Delivery Summary: Pre-delivery diagnoses: 30yo @ 37 02/24, IOL for IUGR, GDMA2, cHTN, obesity, GBS+ Post-delivery diagnoses: same Procedure: spontaneous vaginal delivery Surgeon: Jennifer Chambers DO Complications: none Findings: Viable female . Apgars: 8/8 . Weight pending, please see nursery records Estimated QBL: 155cc Description of delivery: The patient progressed to complete with epidural anesthesia. She then began to push. She spontaneously vaginally delivered a viable from the cephalic presentation. The head delivered in NINO position. The anterior shoulder delivered, followed by the posterior shoulder, followed by the body. Nuchal x 1, delivered through. The baby was placed on mother's abdomen and a spontaneous cry was heard. Delayed cord clamping was employed, and the cord was doubly clamped and cut. Cord blood was obtained. The placenta was delivered spontaneously intact with a 3-vessel cord. The uterus and vagina were swept of clots and debris. IV pitocin was given. The uterus became firm. The cervix, vagina, and perineum were inspected. 1st degree bleeding perineal laceration noted, injected with 1% lidocaine, repaired with 3-0 Vicryl. Excellent hemostasis was observed. The mother and baby are recovering in stable and good condition in the room. Sponge, needle and instrument counts were correct x 2. Jennifer Chambers DO [facility] Vaginal Delivery Charge Vaginal Delivery Codes: 92491 global code for the antepartum, delivery, and post- Delivery Type Details: and 1st Degree LAC
[2025-09-09] MEDS ORDERED: HYDROCORTISONE ACETATE 25 MG SUPP PR PRN (03:40)
[2025-09-09] MEDS ORDERED: OXYTOCIN 30 UNITS/NSS 30 UNITS/500 ML BAG IV PRN (03:40)
[2025-09-09] MEDS: DIPHTHER/TETAN/PERTUS Vaccine (Tdap, Adol/Adult) 0.5mL IM ONE (04:33)
--- NOTE | 2025-09-09 07:34 | Anesthesia Procedure Note ---
Date of Service September 09, 2025 Anesthesia Post Epidural Note Vital Signs Vital Signs: Temp Pulse Resp BP Pulse Ox O2 Del Method 37.2 C 100 H 18 112/70 96 Room Air 09/09/25 05:45 09/09/25 05:45 09/09/25 05:45 09/09/25 05:45 09/09/25 05:45 09/09/25 05:45 Pain Intensity Perineal: Pain Intensity: 10 Notes Mental Status: alert / awake / arousable and participated in evaluation Patient Amnestic to Procedure: No Nausea / Vomiting: adequately controlled Pain: adequately controlled Airway Patency, RR, SpO2: stable & adequate BP & HR: stable & adequate Hydration State: stable & adequate Neuraxial Anesthesia: was administered Anesthetic Complications: no major complications apparent and Pt Satisfied with anesthetic care Epidural: Removed without complications and With tip intact
[2025-09-09] MEDS: PRENATAL VITAMIN 1 TAB PO SCH (09:04)
[2025-09-09] MEDS: DOCUSATE SODIUM 100 MG CAP PO SCH (09:04)
[2025-09-09] MEDS: BENZOCAINE 20% SPRY 85 APPLN/85 GM CAN EXT PRN (09:05)
[2025-09-09] MEDS: IBUPROFEN 600 MG TAB PO PRN (13:16)
[2025-09-09 17:36] VITALS: O2SAT 98
[2025-09-10 06:03] VITALS: BP 115/75; PULSE 74; RESP 16; TEMP 97.7
--- NOTE | 2025-09-10 06:18 | Obstetrical Progress Note ---
Date of Service September 10, 2025 Assessment & Plan (1) care and examination: Plan: 30yo post- day--1 s/p [place] well today Continue post- care Encourage ambulation and Pain controlled with Ibuprofen Vital Signs Discharge home today, follow up with OB provider in 6 weeks Admission and Anticipated Discharge Date Admission Date: September 08, 2025 Supervising Physician Co-Signing Physician Notes Resident Physician Supervision Note: I interviewed and examined the patient. Discussed with Dr. Lopez and agree with findings and plan as documented in the note. Any exceptions or clarifications are listed here: [ ] Documented By: Elena Nunn MD, FACOG, MSCP Subjective 30yo post- day 2 s/p Ambulation: Ambulating normally Voiding: No voiding problems Passing Gas:: Yes Diet Tolerance:: regular diet Lochia:: Small Feeding Type:: Current Pain Level: 2/10 controlled with Ibuprofen Resting comfortably this AM in NAD. Denies SANCHEZ, CP, SOB, N/V/D, LE pain/swelling. Physical Exam Physical Exam: General: patient resting comfortably, NAD, non-toxic in appearance, answers questions appropriately Skin: warm, dry, intact Heart: S1/S2 heard, regular, no m/r/g Lungs: equal air entry bilaterally, no rales/rhonchi/wheezes Abd: Normoactive BS, soft, NT/ND, uterine fundus firm below umbilicus Ext: warm, no clubbing/cyanosis or edema, Elieser's neg Neuro: nonfocal, patient AAOx4, speech intact, no facial droop, moving all extremities on command Results & Data Vital Signs (Past 12 Hours) Vital Signs Temp Pulse Resp BP Pulse Ox O2 Del Method 09/10/25 00:30 36.5 C 74 16 115/75 98 Room Air 09/09/25 20:00 36.8 C 80 18 131/78 98 Room Air Resident Activity Tracking Resident Involvement: Resident Care Provided Care Provided: OB Delivery
[2025-09-10 06:32] LABS: Hematocrit (blood only) 35.1 % (37.0-47.0); Hemoglobin 12.0 g/dl (12.0-16.0)
[2025-09-10] MEDS: ACETAMINOPHEN 325 MG TAB PO PRN (07:51)
== END 2025-09-10 12:44 | disposition home or self-care (01) | DRG 806 ==
LOC: 4S1 07:37 → 4E2 09-09 05:48